=== PATIENT | female | born 1960 ===

== ENCOUNTER → 2019-04-21 | Outpatient (CLI) | payer BC ==
--- NOTE | 2019-04-21 17:05 | MAM ---
EXAM DESCRIPTION: 3D Diagnostic, Left (accession [id number]), Breast,Left (accession [id number]): Ultrasound CLINICAL HISTORY: 58 yearsFemaleINCONCLUSIVE MAMMOGRAM . Mass density versus focal asymmetry left breast. Lifetime risk of developing breast cancer (Tyrer-Cuzick model)(%): 13.9. COMPARISON: Bilateral screening digital breast tomosynthesis 06 April. TECHNIQUE: Left breast LM projection full-field images, digital tomosynthesis technique. Left breast 2-D digital full-field images: LM and exaggerated lateral and exaggerated medial CC projections. CAD available for 2-D images.. Transcutaneous scanning of the left breast utilizing jones-scale and Doppler modes. Scanning performed by the museum preparator ; observation by Dr. Ríos. The patient's daughter provided language translation. FINDINGS: The breast parenchymal density pattern is: Heterogeneously dense breast tissue, which may obscure small masses. No skin thickening or nipple retraction solitary microcalcifications. Focal asymmetry or mass density no longer visible in the region of interest inferior posterior left breast. No new focal, stellate mass or density, focal asymmetry , and no suspicious microcalcifications left breast. Ultrasound: Scanning of the posterior inferior left breast medial and lateral. Breast tissue is mostly fatty with isolated collection of fibroglandular tissues posterior lateral inferior left breast at 5:00 position, 8 cm from the nipple. No dominant solid mass or distinct cyst. No large calcifications or overlying skin changes. IMPRESSION: Benign exam. BIRAD CATEGORY: 2 BENIGN FINDINGS. RECOMMENDATIONS: FOLLOW UP: Routine digital bilateral mammographic screening, one year interval from March 2019. Written communication explaining the IMPRESSION and follow-up, will be mailed to the patient and referring health care provider. The FINDINGS and the FOLLOW-UP plan were reviewed in person with the patient via supplies packer after the examination. According to the [employer], yearly mammograms are recommended starting at age 40 and continuing as long as a woman is in good health. Any breast change noted on a breast self-exam should be reported promptly to the patient's healthcare provider. Breast MRI is recommended for women with an approximately 20-25% or greater lifetime risk of breast cancer, including women with a strong family history of breast or ovarian cancer and women who have been treated for Hodgkin's disease. A negative mammographic report should not delay tissue diagnosis in patients with significant clinical history or physical findings. Extremely dense breast tissue limits the sensitivity of digital mammography. Electronically signed by: Ankur Ríos MD 04/21/2019 5:03 PM [facility]
== END ==
LOC: MAMMO 11:04
PROVIDERS: ATTEND Family Medicine
DX: R92.2 Inconclusive mammogram (principal)
CPT/HCPCS: 76641; 77065; G0279

== ENCOUNTER 2019-04-28 19:49 | Emergency (ER) | payer BC ==
[2019-04-28] MEDS ORDERED: ASPIRIN TABLET 325 MG TAB PO ONE (20:01)
[2019-04-28] MEDS ORDERED: ALPRAZolam 0.25 MG TAB PO ONE (20:01)
[2019-04-28] MEDS ORDERED: cloNIDine HCL 0.1 MG TAB PO ONE (20:09)
--- NOTE | 2019-04-28 20:39 | RAD ---
EXAM DESCRIPTION: Chest,1 View CLINICAL HISTORY: Shortness of breath COMPARISON: Chest radiograph dated April 02, 2019 TECHNIQUE: One view radiograph of the chest FINDINGS: Cardiac silhouette shows normal heart size. Pulmonary vascularity is within normal limits. Lungs show no confluent infiltrates. No pleural effusion. No pneumothorax. No acute osseous abnormality. IMPRESSION: No acute cardiopulmonary process. Electronically signed by: Sukhi Lopez MD 04/28/2019 8:37 PM MINE ENGINEER
[2019-04-28] MEDS ORDERED: diphenhydrAMINE HCL 50 MG/ML VIAL IV ONE (20:54)
[2019-04-28] MEDS ORDERED: methylPREDNISolone SODIUM SUC 125 MG/2 ML VIAL IV ONE (20:54)
[2019-04-28] MEDS ORDERED: methylPREDNISolone SODIUM SUC 125 MG/2 ML VIAL ONE (20:55)
[2019-04-28] MEDS ORDERED: diphenhydrAMINE HCL 50 MG/ML VIAL ONE (20:55)
[2019-04-28 21:38] VITALS: TEMP 96.8; O2SAT 99
[2019-04-28 23:53] VITALS: BP 118/72
--- NOTE | 2019-04-29 00:03 | ED.PDOC ---
History of Present Illness - General Chief Complaint: Chest Pain/SC Stated Complaint: elevated BP, chest pain Time Seen by Provider: 04/28/19 20:00 Source: patient Exam Limitations: no limitations - History of Present Illness Initial Comments: The patient is a 58-year-old female presented to the emergency room secondary to acute onset shortness of breath with some chest tightness, significant anxiety, headache and rising blood pressure. The patient was at rest when symptoms started. Within 20 minutes of arrival here she had started to develop hives behind her left ear. Symptoms improved significantly after being dosed with Benadryl and prednisone. Patient also received a dose of aspirin and clonidine initially as well. No history of any coronary artery disease. The headache was the last to go. Blood pressures have returned to normal. The patient is drowsy from the Benadryl. She also received a very small dose of Xanax for the anxiety. Source of the allergic reaction is uncertain. Timing/Duration: 1/2 hour Severity: moderate Improving Factors: medication Worsening Factors: nothing Associated Symptoms: shortness of breath Allergies/Adverse Reactions: Allergies NO KNOWN ALLERGY Allergy (Verified 04/28/19 20:53) Review of Systems - Review of Systems Constitutional: States: no symptoms reported EENTM: States: nose congestion Respiratory: States: short of breath Cardiology: States: see HPI Gastrointestinal/Abdominal: States: no symptoms reported Genitourinary: States: no symptoms reported Musculoskeletal: States: no symptoms reported Skin: States: no symptoms reported Neurological: States: anxiety, headache Endocrine: States: no symptoms reported All other Systems: No Change from Baseline Past Medical History (General) - Patient Medical History Hx Stroke: No Hx Asthma: No Hx Cardiac Disorders: No Hx Congestive Heart Failure: No Hx Thyroid Disease: No Hx Diabetes: No Hx Renal Disease: No Surgical History: other - Vaccination History Hx Tetanus, Diphtheria Vaccination: No Hx Influenza Vaccination: No Hx Pneumococcal Vaccination: No Immunizations Up to Date: No - Social History Hx Alcohol Use: No Family Medical History - Family History Mother Family History: Unknown Physical Exam - Physical Exam General Appearance: Alert, Anxious Eye Exam: bilateral normal Ears, Nose, Throat: hearing grossly normal, normal pharynx, nasal congestion Neck: full range of motion, supple Respiratory: lungs clear, normal breath sounds, no respiratory distress, no accessory muscle use - Increased respiratory rate however Cardiovascular/Chest: normal peripheral pulses, regular rate, rhythm, no edema Peripheral Pulses: radial,right: 2+, radial,left: 2+ Gastrointestinal/Abdominal: non tender, soft Rectal Exam: deferred Back Exam: no CVA tenderness, no vertebral tenderness Extremity: normal range of motion, non-tender, normal inspection, no pedal edema, normal capillary refill Neurologic: engine lathe tender II-XII nml as tested, alert, oriented x 3, other - Anxious Skin Exam: other - Hives started developing behind the left ear first. Comments: Vital Signs - 24 hr 04/28/19 04/28/19 04/28/19 20:18 21:00 22:04 Temperature 96.8 F L Pulse Rate 67 63 Pulse Rate [ 58 L 61 69 left] Respiratory 20 20 20 Rate Blood Pressure 190/86 140/86 112/78 [left] O2 Sat by Pulse 99 99 99 Oximetry 04/28/19 04/28/19 23:00 23:52 Temperature Pulse Rate 63 63 Pulse Rate [ 58 L 58 L left] Respiratory 20 20 Rate Blood Pressure 113/79 118/72 [left] O2 Sat by Pulse 99 99 Oximetry Progress - Progress Progress: 04/29/19 00:06 The patient is a 58-year-old female presented emergency room with what appears to be an anaphylactic reaction. Source is uncertain. The patient has responded well to medications. No evidence of shock. No hypoxia. No evidence of arrhythmia. Chest x-ray, EKG and laboratory work are reassuring. The patient is going to be written for 3 days of prednisone and she will also be written for a couple of EpiPen's for as needed use. For the next week she should also take a 10 mg Zyrtec nightly. She does need to keep Benadryl with her in case of future reactions as well. If she has another reaction she should take 50 mg of Benadryl at the onset. She should follow-up with her primary care doctor in a couple of days for reevaluation. ER warnings are given. sandy polanco [phone] 04/29/19 00:10 - Results/Orders Results/Orders: Laboratory Results - last 24 hr 04/28/19 04/28/19 04/28/19 20:10 20:10 20:10 WBC 7.0 RBC 4.61 Hgb 13.7 Hct 40.5 MCV 88.0 MCH 29.7 MCHC 33.8 RDW 13.9 Plt Count 237 MPV 8.3 Absolute Neuts (auto) 3.80 Absolute Lymphs (auto) 2.60 Absolute Monos (auto) 0.40 Absolute Eos (auto) 0.10 Absolute Basos (auto) 0.00 Neutrophils % 54.9 Lymphocytes % 37.2 Monocytes % 5.8 Eosinophils % 1.4 Basophils % 0.7 PT 9.9 INR 1.00 PTT (SP) 26.3 D-Dimer, Quantitative < 131 L Sodium 136 Potassium 3.9 Chloride 102 Carbon Dioxide 29 Anion Gap 8.9 L BUN 10 Creatinine 0.60 BUN/Creatinine Ratio 16.7 Random Glucose 95 Serum Osmolality 270.8 L Calcium 10.1 Magnesium 1.9 Total Bilirubin 0.5 AST 22 ALT 14 Alkaline Phosphatase 64 Creatine Kinase 63 CK-MB (CK-2) 1.5 CK-MB (CK-2) % Not Reportable Troponin I < 0.02 B-Natriuretic Peptide 20.8 Serum Total Protein 7.4 Albumin 4.4 Globulin 3.0 Albumin/Globulin Ratio 1.5 TSH 3.82 Urine Color Urine Appearance Urine pH Ur Specific [place] Urine Protein Urine Glucose (UA) Urine Ketones Urine Blood Urine Nitrite Urine Bilirubin Urine Urobilinogen Ur Leukocyte Esterase Urine RBC Urine WBC Ur Epithelial Cells Urine Bacteria Group A Strep Rapid 04/28/19 04/28/19 04/28/19 20:25 21:30 23:25 WBC RBC Hgb Hct MCV MCH MCHC RDW Plt Count MPV Absolute Neuts (auto) Absolute Lymphs (auto) Absolute Monos (auto) Absolute Eos (auto) Absolute Basos (auto) Neutrophils % Lymphocytes % Monocytes % Eosinophils % Basophils % PT INR PTT (SP) D-Dimer, Quantitative Sodium Potassium Chloride Carbon Dioxide Anion Gap BUN Creatinine BUN/Creatinine Ratio Random Glucose Serum Osmolality Calcium Magnesium Total Bilirubin AST ALT Alkaline Phosphatase Creatine Kinase 55 CK-MB (CK-2) 1.2 CK-MB (CK-2) % Not Reportable Troponin I < 0.02 B-Natriuretic Peptide Serum Total Protein Albumin Globulin Albumin/Globulin Ratio TSH Urine Color Straw Urine Appearance Clear Urine pH 6.5 Ur Specific [place] 1.010 Urine Protein Negative Urine Glucose (UA) Negative Urine Ketones Negative Urine Blood Negative Urine Nitrite Negative Urine Bilirubin Negative Urine Urobilinogen 0.2 Ur Leukocyte Esterase Negative Urine RBC 0 Urine WBC 0 Ur Epithelial Cells 0-1 Urine Bacteria 0 Group A Strep Rapid Negative Rapid flu was negative. Chest x-ray shows no acute pathology. EKG shows normal sinus rhythm at 64 bpm. Normal axis. Normal R wave progression. No ST segment or T wave changes indicative of acute ischemia. Normal QT interval. Departure - Departure Clinical Impression: Anaphylaxis Qualifiers: Encounter type: initial encounter Qualified Code(s): T78.2XXA - Anaphylactic shock, unspecified, initial encounter Disposition: Discharge to Home or Self Care Condition: Fair Departure Forms: ED Discharge - Pt. Copy, Patient Portal Self Enrollment Instructions: Hives, Anaphylaxis Diet: regular diet Activity: increase activity as tolerated Referrals: Vincenzo Polanco MD [Primary Care Provider] - 1-2 Weeks Additional Instructions: The patient is a 58-year-old female presented emergency room with what appears to be an anaphylactic reaction. Source is uncertain. The patient has responded well to medications. No evidence of shock. No hypoxia. No evidence of arrhythmia. Chest x-ray, EKG and laboratory work are reassuring. The patient is going to be written for 3 days of prednisone and she will also be written for a couple of EpiPen's for as needed use. For the next week she should also take a 10 mg Zyrtec nightly. She does need to keep Benadryl with her in case of future reactions as well. If she has another reaction she should take 50 mg of Benadryl at the onset. She should follow-up with her primary care doctor in a couple of days for reevaluation. ER warnings are given.
[2019-04-29] MEDS ORDERED: predniSONE 20 MG TAB PO ONE (00:10)
[2019-04-29] MEDS ORDERED: CETIRIZINE HCL 10 MG TAB PO ONE (00:10)
[2019-04-29] MEDS ORDERED: MONTELUKAST 10 MG TAB PO ONE (00:10)
== END 2019-04-29 00:36 | disposition home or self-care (01) ==
LOC: ER 19:49
DX: T78.2XXA Anaphylactic shock, unspecified, initial encounter (principal); L50.0 Allergic urticaria
CPT/HCPCS: 36415; 71045; 80053; 81001; 82550; 82553; 83735; 83880; 84443; 84484; 85025; 85379; 85610; 85730; 87070; 87502; 87880; 93005; J1200; J2930; J7512

== ENCOUNTER → 2020-01-24 | Outpatient (CLI) | payer BC ==
--- NOTE | 2020-01-25 16:19 | US ---
EXAM DESCRIPTION: 3D Diagnostic, Bilateral (accession [id number]), Breast,Left (accession [id number]): Ultrasound CLINICAL HISTORY: 59 yearsFemaleABNORMAL MAMMO, LEFT BREAST LUMP . Recurring pain in the left breast. Sister with breast cancer. Menarche age unknown. Childbirth age 19. Menopause age unknown. No HRT Lifetime risk of developing breast cancer (Tyrer-Cuzick model)(%): 13.6. COMPARISON: Bilateral screening digital breast tomosynthesis March 2019. Diagnostic left breast digital tomosynthesis and 2-D imaging and directed ultrasound April 2019. TECHNIQUE: Bilateral LM, CC, and MLO projection full-field images, digital tomosynthesis technique. Bilateral 2-D digital full-field images: LM, CC, and MLO projections. CAD available for 2-D images.. Transcutaneous scanning of the left breast utilizing jones-scale and Doppler modes. Scanning performed by the retail support manager ; observation by Dr. Ríos. The patient was accompanied by family member who provided translation. FINDINGS: The breast parenchymal density pattern is: Heterogeneously dense breast tissue, which may obscure small masses. No skin thickening or nipple retraction solitary microcalcifications. Stable. Triangular skin marker upper outer quadrant middle third left breast. Overlying dense fibroglandular tissues. Scattered small calcifications in the dense fibroglandular tissues bilaterally. No new focal, stellate mass or density, focal asymmetry , and no suspicious microcalcifications bilaterally. Stable mammograms since the prior study. Ultrasound: Scanning region of interest upper outer quadrant middle third left breast. 10 cm from the nipple at 3:00. Mostly fibroglandular tissues with anterior peripheral fatty tissues. No dominant solid mass, no fluid collection, no distinct cyst, no large calcifications. No overlying skin changes. IMPRESSION: Benign exam. BIRAD CATEGORY: 2 BENIGN FINDINGS. RECOMMENDATIONS: FOLLOW UP: Routine digital bilateral mammographic screening, one year interval from January 2020. Written communication explaining the IMPRESSION and follow-up, will be mailed to the patient and referring health care provider. The FINDINGS and the FOLLOW-UP plan were reviewed in person with the patient after the examination. According to the [employer], yearly mammograms are recommended starting at age 40 and continuing as long as a woman is in good health. Any breast change noted on a breast self-exam should be reported promptly to the patient's healthcare provider. Breast MRI is recommended for women with an approximately 20-25% or greater lifetime risk of breast cancer, including women with a strong family history of breast or ovarian cancer and women who have been treated for Hodgkin's disease. A negative mammographic report should not delay tissue diagnosis in patients with significant clinical history or physical findings. Extremely dense breast tissue limits the sensitivity of digital mammography. Electronically signed by: Ankur Ríos MD 01/25/2020 4:18 PM [facility]
== END ==
LOC: MAMMO 11:47
PROVIDERS: ATTEND Surgery
DX: R92.8 Other abnormal and inconclusive findings on diagnostic imaging of breast (principal)
CPT/HCPCS: 76641; 77066; G0279